=== PATIENT | female | born 1960 | race Caucasian/White ===

== ENCOUNTER 2020-02-16 09:52 | Inpatient (IN) | payer OTHER ==
[~2020-02-16] VITALS: Ht 182.9 cm; Wt 99.8 kg
[~2020-02-16 09:52] MED LIST: ACET325T9 PO; LEVO25TA55 PO
[2020-02-16] MEDS ORDERED: IV NORMAL SALINE 1,000ML 1,000 ML IV ONE (10:15)
[2020-02-16] MEDS ORDERED: MECLIZINE 12.5 MG TABLET. PO ONE (10:15)
[2020-02-16] MEDS ORDERED: ONDANSETRON PF 4 MG/2 ML VIAL. IVP ONE (10:15)
[2020-02-16] MEDS ORDERED: diphenhydrAMINE 50 MG/ML VIAL IVP ONE (10:15)
[2020-02-16 10:20] LABS: BASO % 0 % (0-3); EOS % 1 % (0-3); HEMATOCRIT 44.1 % (36.0-47.0); HEMOGLOBIN 14.8 g/dL (12.0-15.5); LYMPH % 11 % (24-48); MEAN CORPUSCULAR HEMOGLOBIN 32 pg (25-35); MEAN CORPUSCULAR HGB CONC 34 g/dL (31-37); MEAN CORPUSCULAR VOLUME 96 fL (79-100); MONO # 0.4 x10^3/uL (0.0-1.1); MONO % 4 % (0-9); NEUT # 7.5 x10^3uL (1.8-7.7); NEUT % 84 % (31-73); PLATELET COUNT 177 x10^3/uL (140-400); RED BLOOD COUNT 4.58 x10^6/uL (3.50-5.40); RED CELL DISTRIBUTION WIDTH 13.6 % (11.5-14.5); WHITE BLOOD COUNT 8.9 x10^3/uL (4.0-11.0)
--- NOTE | 2020-02-16 10:23 | PHYS DOC ---
Past History Past Medical History: Anxiety, GERD, Hypothyroid Past Surgical History: Cholecystectomy, Hysterectomy, Knee Replacement, Other Additional Past Surgical Histo: NECK DISC SURGERY Alcohol Use: Rarely Additional Alcohol Information: RED WINE General Adult EDM: Chief Complaint: DIZZY/LIGHT HEADED HPI: HPI: 60-year-old female presents with dizziness. This started yesterday as a mild case when she was on a Zoom call. She did not think much of it. Then last night when she was sitting on the couch she became significantly more dizzy. She describes it as a room spinning sensation. It is made worse with movement of her head or changes in body position. She has had a few episodes of vomiting this morning. These were exacerbated by moving to the ambulance gurney. Patient has had chills but denies fever. She was feeling okay prior to these episodes. She has had mild vertigo in the past when she needed cervical fusion. She has never had an episode like this. Review of Systems: Review of Systems: Constitutional: Denies fever or chills Eyes: Denies change in visual acuity HENT: Denies nasal congestion or sore throat Respiratory: Denies cough or shortness of breath Cardiovascular: Denies chest pain or edema GI: Nausea, vomiting. Denies abdominal pain, bloody stools or diarrhea : Denies dysuria Musculoskeletal: Denies back pain or joint pain Integument: Denies rash Neurologic: Dizziness. Denies headache, focal weakness or sensory changes Endocrine: Denies polyuria or polydipsia Lymphatic: Denies swollen glands Psychiatric: Denies depression or anxiety Heart Score: Risk Factors: Risk Factors: DM, Current or recent (<one month) smoker, HTN, HLP, family history of CAD, obesity. Risk Scores: Score 0 - 3: 2.5% MACE over next 6 weeks - Discharge Home Score 4 - 6: 20.3% MACE over next 6 weeks - Admit for Clinical Observation Score 7 - 10: 72.7% MACE over next 6 weeks - Early Invasive Strategies Current Medications: Current Meds: Current Medications Medications (Trade) Dose Ordered Sig/Kevin Start Time Stop Time Status Last Admin Dose Admin Diphenhydramine HCl (Benadryl) 25 mg 1X ONCE 02/16/20 10:15 02/16/20 10:16 DC Meclizine HCl (Antivert) 25 mg 1X ONCE 02/16/20 10:15 02/16/20 10:16 DC Ondansetron HCl (Zofran) 4 mg 1X ONCE 02/16/20 10:15 02/16/20 10:16 DC Sodium Chloride 1,000 ml @ 1,000 mls/hr 1X ONCE 02/16/20 10:15 02/16/20 11:14 Allergies: Allergies: Allergies Coded Allergies Type Severity Reaction Last Updated Verified acetaminophen Allergy Unknown VOMITING 02/16/20 Yes aspirin Allergy Unknown 02/16/20 Yes ibuprofen Allergy Unknown 02/16/20 Yes oxycodone Allergy Unknown VOMITING 02/16/20 Yes Physical Exam: PE: Constitutional: Well developed, well nourished, no acute distress, non-toxic appearance. [] HENT: Normocephalic, atraumatic, bilateral external ears normal, oropharynx moist, no oral exudates, nose normal. [] Eyes: PERRLA, horizontal nystagmus bilaterally [] Neck: Normal range of motion, no tenderness, supple, no stridor. [] Cardiovascular: Heart rate regular rhythm, no murmur [] Lungs & Thorax: Bilateral breath sounds clear to auscultation [] Abdomen: Bowel sounds normal, soft, no tenderness, no masses, no pulsatile masses. [] Skin: Warm, dry, no erythema, no rash. [] Back: No tenderness, no CVA tenderness. [] Extremities: No tenderness, no cyanosis, no clubbing, ROM intact, no edema. [] Neurologic: Alert and oriented X 3, normal motor function, normal sensory function, no focal deficits noted. [] Psychologic: Affect normal, judgement normal, mood normal. [] Current Patient Data: Vital Signs: Vital Signs Date Time Temp Pulse Resp B/P (MAP) Pulse Ox O2 Delivery O2 Flow Rate FiO2 02/16/20 09:53 97.7 58 18 155/98 (117) 97 Room Air EKG: EKG: Sinus bradycardia, rate 54, normal axis, no ST elevations or depressions. [] Radiology/Procedures: Radiology/Procedures: [] Impressions: PQRS Compliance Statement: One or more of the following individualized dose reduction techniques were utilized for this examination: 1. Automated exposure control 2. Adjustment of the mA and/or kV according to patient size 3. Use of iterative reconstruction technique CT HEAD WITHOUT CONTRAST History: Reason: dizziness / Spl. Instructions: / History: Comparison: None. Procedure: Axial images are obtained of the head from the skull base through the vertex without IV contrast. Findings: The ventricles and sulci are normal for the patient's age. No mass-effect, midline shift, hemorrhage, extra-axial fluid collection, or obvious acute infarction is identified. Basilar cisterns are patent. Bone windows demonstrate no acute calvarial abnormality. The visualized paranasal sinuses are clear. Mastoid air cells are well aerated. IMPRESSION: No acute intracranial abnormality. Electronically signed by: Yusuf Hernandez MD (02/16/2020 11:30 AM) [id number] DICTATED AND SIGNED BY: YUSUF HERNANDEZ MD DATE: 02/16/20 1130 CC: SHADIA ESCOBAR DO; MARK LUJAN Jr. PAC ~ Course & Med Decision Making: Course & Med Decision Making Pertinent Labs and Imaging studies reviewed. (See chart for details) The patient's labs are unremarkable. Her head CT is negative for acute findings. I have given her Zofran, meclizine, Benadryl for her dizziness. She is also given a liter of normal saline. She is not feeling any better. When she goes to sit up and move around her heart rate decreases into the mid 40s. She does not have a history of bradycardia. Her EKG had a rate of 54 at rest, normal sinus. The patient does not feel well enough to go home. Her bradycardia is also concerning. I will admit the patient to the hospital. I spoke with Dr. Briggs and he has accepted the patient for admission. [] Sami Disclaimer: Sami Disclaimer: This electronic medical record was generated, in whole or in part, using a voice recognition dictation system. Departure Departure: Impression: Primary Impression: Bradycardia Additional Impression: Dizziness Disposition: ADMITTED INPATIENT Admitting Physician: Victor Manuel Briggs Condition: STABLE Referrals: MARK LUJAN Jr. PAC (PCP) Justification of Admission: Justification of Admission: Justification of Admission Dx: Comment: Comments: dizziness, bradycardia SAHDIA ESCOBAR DO Feb 16, 2020 10:23
[2020-02-16 10:25] LABS: CALCIUM 8.9 mg/dL (8.5-10.1); GFR 56.2; POTASSIUM 3.7 mmol/L (3.5-5.1)
[2020-02-16 10:31] LABS: ALBUMIN/GLOBULIN RATIO 1.1 (1.0-1.7); TOTAL BILIRUBIN 0.4 mg/dL (0.2-1.0); TOTAL PROTEIN 7.5 g/dL (6.4-8.2)
--- NOTE | 2020-02-16 11:33 | RAD ---
RS Compliance Statement: One or more of the following individualized dose reduction techniques were utilized for this examination: 1. Automated exposure control 2. Adjustment of the mA and/or kV according to patient size 3. Use of iterative reconstruction technique CT HEAD WITHOUT CONTRAST History: Reason: dizziness / Spl. Instructions: / History: Comparison: None. Procedure: Axial images are obtained of the head from the skull base through the vertex without IV contrast. Findings: The ventricles and sulci are normal for the patient's age. No mass-effect, midline shift, hemorrhage, extra-axial fluid collection, or obvious acute infarction is identified. Basilar cisterns are patent. Bone windows demonstrate no acute calvarial abnormality. The visualized paranasal sinuses are clear. Mastoid air cells are well aerated. IMPRESSION: No acute intracranial abnormality. Electronically signed by: Yusuf Hernandez MD (02/16/2020 11:30 AM) [id number]
--- NOTE | 2020-02-16 11:45 | EKG ---
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
[2020-02-16] MEDS ORDERED: ONDANSETRON PF 4 MG/2 ML VIAL. IVP PRN ×2 (13:15→15:15)
--- NOTE | 2020-02-16 14:50 | NUR ---
PT 60 Y/O FEMALE BROUGHT TO ICU6 BY EMS AND ED STAFF IN [facility], SETTLED INTO BED AND ORIENTED TO ROOM AND VERBALIZED UNDERSTANDING TO TRAINING, VERIFIED HOME MEDS, ALL QUESTIONS ASKED AND ANSWERED. PT COMPLAINS OF DIZZINESS THAT STARTED LAST NIGHT AND INTO THIS MORNING, STATES HAVING VOMITING EPISODES X3, DIZZINESS NOT RESOLVED IN ER. WILL CONTINUE TO MONITOR. VSS AT THIS TIME
[2020-02-16 14:54] VITALS: BP 124/72
[2020-02-16] MEDS ORDERED: IV NORMAL SALINE 1,000ML 1,000 ML IV SCH (15:07)
[2020-02-16] MEDS ORDERED: diphenhydrAMINE 50 MG/ML VIAL IVP PRN (15:15)
[2020-02-16] MEDS ORDERED: METOCLOPRAMIDE HCL 10 MG/2 ML VIAL. IVP PRN (15:15)
[2020-02-16] MEDS ORDERED: OMEP20CA16 PO (15:29)
[2020-02-16] MEDS ORDERED: LEVO50TA PO (15:33)
[2020-02-16] MEDS ORDERED: GABA-585 PO (15:33)
[2020-02-16] MEDS ORDERED: CLON0.5T4 PO (15:33)
[2020-02-16] MEDS ORDERED: ZOLP5TAB PO (15:33)
--- NOTE | 2020-02-16 15:38 | HP ---
ADMIT DATE: 02/16/2020 HISTORY OF PRESENT ILLNESS: The patient is a 60-year-old female patient who presented to the Emergency Room with a complaint of dizziness. This started yesterday, is mild case when she was on a Zoom call. She did not think much of it. Then last night when she was sitting on the couch, she became significantly more dizzy, described as room spinning sensation. It is made worse with movement of her head or change in body position. She had a few episodes of vomiting this morning, she went to the bathroom. Her symptoms are exacerbated by moving to the ambulance gurney. She had some chills, but denied any fever. She was feeling okay prior to this episode. She stated that she had similar episodes when she had her cervical spine fusions, but she never had any episode like this before. She was extensively investigated in the Emergency Room and according to the ER physician, she has nystagmus. However, all her lab works were unremarkable. CT scan of the head without contrast showed that the ventricles and sulci are normal for the patient's age. There was no mass effect, midline shift, hemorrhage, extraaxial fluid collection or obvious acute infarction identified. Basilar cisterns are patent. Bone windows demonstrated no acute calvarial abnormality. The visualized paranasal sinuses are clear. Mastoid air cells are well aerated. Therefore, the patient was admitted for further evaluation and to consult Dr. Palmer. PAST MEDICAL HISTORY: Significant for hypothyroidism, hiatal hernia, gastroesophageal reflux disease, osteoarthritis, degenerative disk disease. PAST SURGICAL HISTORY: Significant for neck surgery x 3. She has bilateral total knee arthroplasty, total abdominal hysterectomy, cholecystectomy, left breast benign cyst removal, left Achilles tendon cyst removal, surgery on her left foot. She did have a stress test in 2018 that was apparently normal. She has had an EGD and colonoscopy in 2017. ALLERGIES: APPARENTLY SHE DOES NOT HAVE A TRUE ALLERGY BUT ASPIRIN, MOTRIN IRRITATE HER STOMACH AND PERCOCET MAKES HER VERY NAUSEOUS AND VOMIT. MEDICATIONS: She is on following medications: She is on omeprazole 20 mg once a day, Synthroid 50 mcg once a day, Ambien 5 mg at bedtime, clonazepam 1 mg at bedtime. She is on gabapentin 300 mg probably 3 times a day after she developed recurrence of tingling and numbness after her surgery on her neck that was done about a year ago. FAMILY HISTORY: She is adopted. She does not know her biological parents. SOCIAL HISTORY: She is , lives with her cat. She never smoked. Drinks red wine usually 1-2 glasses a day, does not use any drugs. 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 REVIEW OF SYSTEMS: The patient denies any blurring of vision, cataract, glaucoma or macular degeneration. Denied any earache, tinnitus or sensorineural deafness. Denied any nosebleeds, stuffy nose or postnasal drip. Denied any sore throat, sore tongue, toothache, hoarseness of voice or difficulty swallowing. Did have nausea, vomiting only yesterday and this morning. Denied any diarrhea or constipation. Denied any hematemesis, melena, hematochezia. Denied any dysuria, frequency or hematuria. Denied any chest pain, shortness of breath, orthopnea or paroxysmal nocturnal dyspnea. Denied any cough, phlegm or hemoptysis. Did complain obviously of dizziness and vertigo. PHYSICAL EXAMINATION: GENERAL: On arrival to the Emergency Room, the patient was well-developed, well nourished, in no acute distress. There is no pallor, jaundice, cyanosis or thyromegaly. No jugular venous distention. No lower limb edema. VITAL SIGNS: Her heart rate was 58, blood pressure 155/98, temperature 97.7, respiratory rate was 18 and oxygen saturation was 97% on room air. HEAD, EYES, EARS, NOSE AND THROAT: Showed normocephalic, atraumatic. NECK: Supple. HEART: Showed normal first and second heart sounds. No gallop, rub or murmur. CHEST: Clear to auscultation. No crepitation or rhonchi. ABDOMEN: Distended, soft, nontender. NEUROLOGIC: She is awake, alert, responding appropriately. She is unable to open her eyes as every time she opens her eyes she feels things spinning around; however, she has no obvious lateralizing sign. She was able to move her extremities without difficulty. LABORATORY DATA: Showed a white cell count of 8900, hemoglobin 14.8, hematocrit 44, MCV 96, and platelet count of 177,000. Her serum sodium was 141, potassium 3.7, chloride 105, bicarbonate 26, anion gap of 10, BUN 13, creatinine 1, estimated GFR was 56 mL per minute. Her glucose was 58, calcium was 8.9. Total bilirubin 0.4. AST, ALT, alkaline phosphatase slightly elevated. Total protein 7.5, albumin 4. CT scan of the head without contrast showed that her ventricles and sulci are normal for the patient's age, no mass effect, midline shift, hemorrhage, extraaxial fluid collection or obvious acute infarction identified. Basilar cisterns are patent. Bone windows demonstrate no acute calvarial abnormality. Visualized paranasal sinuses are clear. Mastoid air cells are well aerated. ASSESSMENT AND PLAN: The patient was admitted with acute probably vestibular neuronitis. She apparently was noted to have also episodes of bradycardia while in the Emergency Room. PLAN: My plan is to continue with IV fluid. We will continue her medication, start her on meclizine as well as continue with IV fluid and perhaps add diazepam and we will consult the neurologist. REID GARCIA MD DR: DEBORAH/forrest JOB#: [id number] / [id number]
[2020-02-16] MEDS: ACETAMINOPHEN 325 MG TABLET PO PRN ×2 (15:46→21:29)
[2020-02-16] MEDS: IV NORMAL SALINE 1,000ML 1,000 ML IV SCH (15:46)
[2020-02-16 18:55] LABS: BILIRUBIN,URINE NEG (NEG); CLARITY,URINE HAZY; COLOR,URINE YELLOW; GLUCOSE,URINE NEG (NEG); NITRITE,URINE NEG (NEG); RBC,URINE 0 /HPF (0-2); UROBILINOGEN,URINE 0.2 mg/dL (0.2 mg/dL)
[2020-02-16 18:56] LABS: BACTERIA,URINE FEW /HPF (0-FEW); SQUAMOUS EPITHELIAL CELL,UR FEW /LPF
[2020-02-16 20:30] VITALS: BP 137/74
[2020-02-16] MEDS: MECLIZINE 12.5 MG TABLET. PO PRN (21:29)
[2020-02-16] MEDS: clonazePAM 0.5 MG TABLET PO PRN (21:29)
[2020-02-16] MEDS: GABAPENTIN 100 MG CAPSULE. PO SCH (21:29)
[2020-02-16] MEDS: ZOLPIDEM 5 MG TABLET. PO PRN (21:29)
[2020-02-17] VITALS (8 sets, daily range): BP systolic 118–145; BP diastolic 78–94
[2020-02-17] MEDS: IV NORMAL SALINE 1,000ML 1,000 ML IV SCH ×3 (00:53→23:53)
[2020-02-17] MEDS: LEVOTHYROXINE 50 MCG TABLET PO SCH (06:03)
[2020-02-17 06:28] LABS: HEMATOCRIT 39.3 % (36.0-47.0); HEMOGLOBIN 13.2 g/dL (12.0-15.5); RED BLOOD COUNT 4.11 x10^6/uL (3.50-5.40); RED CELL DISTRIBUTION WIDTH 13.5 % (11.5-14.5); WHITE BLOOD COUNT 5.3 x10^3/uL (4.0-11.0)
[2020-02-17 06:46] LABS: ALBUMIN 3.3 g/dL (3.4-5.0); ALBUMIN/GLOBULIN RATIO 1.1 (1.0-1.7); CALCIUM 8.5 mg/dL (8.5-10.1); CREATININE 0.8 mg/dL (0.6-1.0); GFR 72.7; POTASSIUM 3.9 mmol/L (3.5-5.1); TOTAL BILIRUBIN 0.4 mg/dL (0.2-1.0); TOTAL PROTEIN 6.3 g/dL (6.4-8.2)
[2020-02-17] MEDS: GABAPENTIN 100 MG CAPSULE. PO SCH ×3 (09:09→20:32)
[2020-02-17] MEDS: MECLIZINE 12.5 MG TABLET. PO PRN ×3 (09:13→23:47)
[2020-02-17] MEDS: ACETAMINOPHEN 325 MG TABLET PO PRN ×3 (09:13→20:32)
--- NOTE | 2020-02-17 09:41 | NUR ---
attempted to page Dr. Palmer x 2 with no response.
--- NOTE | 2020-02-17 17:12 | CONS ---
DATE OF CONSULTATION: NEUROLOGY CONSULTATION REFERRING PHYSICIAN: Dr. Briggs. REASON FOR CONSULTATION: Severe dizziness. HISTORY OF PRESENT ILLNESS: This is a 60-year-old right-handed female who was admitted through Emergency Room after she presented with 1-day history of progressive dizziness described as vertigo and spinning, aggravated by moving the eyes to any directions or changing her body positions. The symptoms have worsened yesterday on the day of admission. She also complains of neck pain radiating into the upper extremities, more prominent on the right side and associated with numbness and paresthesia. Other associated symptoms including nausea and she did vomit twice on the day of admission. Initial nonenhanced head CT scan revealed no evidence of acute intracranial process or any other abnormalities. The patient has been on IV fluid, meclizine and Zofran for nausea with some improvement of her symptoms; however, she has not had any vomiting since yesterday. Currently, she denies headaches, visual disturbances, chest pain, shortness of breath or palpitation, dysarthria or dysphagia. She denies fever or cough. PAST MEDICAL HISTORY: Significant for anxiety and depression. The patient has been on Zoloft for several years, but she was weaned off by her psychiatrist 3 months ago, but she thinks she needs to be placed on antidepressant again. History of osteoarthritis, GERD, hypothyroidism, and degenerative disk disease mainly in the cervical spine. PAST SURGICAL HISTORY: Significant for cervical spine fusion x 3 in 1990, 2014 and in October 2018 when the plate was shifted. The surgery was at the level of C3-C4 and C4-C5. History of cholecystectomy, total abdominal hysterectomy, bilateral total knee replacement, left Achilles tendon cyst removal and removal of a benign cyst of the left breast. The patient underwent EGD and colonoscopy in 2017 and she had stress test in 2018, which was reported normal. SOCIAL HISTORY: The patient is single. She denies smoking, but she drinks 1-2 glasses of wine daily. She is a retired [employer] personnel and currently she is a financial administrative assistant. FAMILY HISTORY: The patient is adopted. ALLERGIES: PERCOCET and possible ASPIRIN and IBUPROFEN. REVIEW OF SYSTEMS: A 12-point review of system was performed as mentioned above in history of present illness. PHYSICAL EXAMINATION: GENERAL: Obese female, not in acute distress. She weighs 102.9 kilos. VITAL SIGNS: Blood pressure 136/84, respiratory rate 16, pulse is 49, temperature is 98.1, oxygen saturation is 97, the pulse this morning was between 50 and 60. No orthostatic changes. NECK: Supple. Negative for carotid bruit, lymphadenopathy or thyromegaly. LUNGS: Clear to A and P. CARDIOVASCULAR: Regular rate and rhythm, normal S1, S2. No murmur. ABDOMEN: Soft. Bowel sounds positive. EXTREMITIES: Negative for cyanosis, clubbing or edema. NEUROLOGICAL: MENTAL STATUS: The patient is alert and oriented x 3. Speech is fluent. There is no language dysfunction. Memory, judgment, and abstracting thinking are normal. The patient denies hallucination or delusion. CRANIAL NERVES: The pupils are equal and reactive to light and accommodation. The extraocular movements are intact. There is 2-beat nystagmus on horizontal gaze. There is no facial motor or sensory deficit. Hearing is intact bilaterally. The palate is elevated symmetrically. Sternocleidomastoid muscles are powerful bilaterally. The patient shrugs her shoulders symmetrically, protrudes her tongue in the midline without fasciculation or atrophy. MOTOR EXAMINATION: No focal muscle bulk was seen. The tone is normal. The strength is 4/5 throughout. SENSORY EXAMINATION: Revealed diminished pinprick and light touch senses in the bilateral upper extremities, more evident on the right side. Deep tendon reflexes were symmetric and active without pathologic responses. GAIT: Not tested as the patient has severe spinning. LABORATORY DATA: CBC revealed white blood cells of 5.3 thousand, hemoglobin 13.2, hematocrit 39.3, platelet count 164,000. Chemistry revealed sodium of 142, potassium 3.9, chloride 108, CO2 of 28, BUN 11, creatinine 0.8, glucose 110, calcium 8.5. Urinalysis, no evidence of urinary tract infections. DIAGNOSTIC DATA: Initial nonenhanced head CT scan as mentioned above in history of present illness, otherwise unremarkable. IMPRESSION: 1. Acute vertigo, likely due to acute vestibulitis. 2. Numbness and paresthesia of the upper extremities with positive Tinel's sign, more prominent on the right side, rule out entrapment neuropathy versus cervical radiculopathy with a longstanding history of underlying degenerative disk disease. 3. Multiple medical problems include hypothyroidism, gastroesophageal reflux disease, osteoarthritis. 4. Anxiety and depressions. RECOMMENDATIONS: 1. We will continue with current management initiated by Dr. Briggs. 2. I will increase meclizine to 25 mg every 8 hours p.r.n. 3. I will put the patient back on Zoloft to start at 50 mg daily. 4. We will arrange for EMG/NCS of the upper extremities to rule out entrapment neuropathy versus cervical radiculopathy to be done on an outpatient basis. 5. Increase physical activity slowly and carefully as tolerated. M Len BIANCHI MD DR: GEETA/forrest JOB#: [id number] / [id number]
--- NOTE | 2020-02-17 19:04 | PN ---
DATE: 02/17/2020 SUBJECTIVE: The patient is resting, slightly propped up in bed and definitely much better than yesterday. She is able to open her eyes and managed to get out of the bed, stand and get to the bedside commode. Continues to complain of things spinning around, although she managed to eat her lunch and kept it without any nausea or vomiting. She was seen by Dr. Palmer and increased her meclizine to 12.5 mg every 4 hours and added Zoloft. PHYSICAL EXAMINATION: GENERAL: When I examined her, she looked well and was clearly in no apparent distress. No pallor, jaundice, cyanosis or thyromegaly. No jugular venous distention. No limb edema. VITAL SIGNS: Her heart rate was 49, blood pressure was 136/84, temperature was 98.1, respiratory rate was 15 and oxygen saturation was 97% on room air. HEAD, EYES, EARS, NOSE AND THROAT: Normocephalic, atraumatic. NECK: Supple. HEART: Showed normal first and second heart sounds. No gallop, rub or murmur. CHEST: Clear to auscultation. No crepitation or rhonchi. ABDOMEN: Distended, soft, nontender. NEUROLOGIC: She is grossly intact. Her intake and output are incompletely recorded. LABORATORY DATA: Her lab work this morning showed her white cell count was 5,300, hemoglobin 13, hematocrit 39, MCV 88 and platelet count of 164,000. Her chemistry showed serum sodium of 142, potassium 3.9, chloride 108, bicarbonate 28, anion gap of 6, BUN 11, creatinine 0.8, estimated GFR was 72 mL per minute. Her glucose 110, calcium was 8.5. Total bilirubin, AST, ALT, alkaline phosphatase were normal. Total protein 6.3, albumin 3.3. Urinalysis essentially unremarkable. ASSESSMENT: Acute vestibular neuronitis, improving, sinus bradycardia. Other medical problems include: 1. Hypothyroidism. 2. Hiatus hernia. 3. Gastroesophageal reflux disease. 4. Osteoarthritis and degenerative disk disease. PLAN: To continue with IV fluid, continue with meclizine. Continue with Zoloft. Continue with all other medications. We have already ordered physical and occupational therapy. REID GARCIA MD DR: DEBORAH/forrest JOB#: [id number] / [id number]
[2020-02-17] MEDS: ZOLPIDEM 5 MG TABLET. PO PRN (21:05)
[2020-02-17] MEDS: clonazePAM 0.5 MG TABLET PO PRN (21:05)
[2020-02-18] MEDS: LEVOTHYROXINE 50 MCG TABLET PO SCH (05:29)
[2020-02-18 05:50] VITALS: BP 148/97
[2020-02-18 07:03] LABS: CALCIUM 8.3 mg/dL (8.5-10.1); CREATININE 0.8 mg/dL (0.6-1.0); GFR 72.7; POTASSIUM 3.7 mmol/L (3.5-5.1)
[2020-02-18] MEDS: MECLIZINE 12.5 MG TABLET. PO PRN ×2 (08:17→18:41)
[2020-02-18] MEDS: GABAPENTIN 100 MG CAPSULE. PO SCH ×3 (08:17→20:31)
[2020-02-18] MEDS: ACETAMINOPHEN 325 MG TABLET PO PRN ×3 (08:17→21:31)
[2020-02-18] MEDS: SERTRALINE 50 MG TABLET. PO SCH (08:18)
[2020-02-18 11:06] VITALS: BP 149/96
[2020-02-18] MEDS: IV NORMAL SALINE 1,000ML 1,000 ML IV SCH (12:12)
--- NOTE | 2020-02-18 12:23 | PN ---
DATE: SUBJECTIVE: The patient is sitting in her chair comfortably. She has been able to walk to the bathroom and is now opening her eyes. However, she continued to complain of things spinning around, although she has eaten some of her breakfast this morning and had no nausea, no vomiting. Her meclizine was increased to 25 mg every 4 hours and was started on Zoloft 50 mg and she is generally slowly getting better, although not yet ready to be discharged. PHYSICAL EXAMINATION: GENERAL: When I examined her, she looked well and was clearly in no apparent respiratory distress. No pallor, jaundice, cyanosis or thyromegaly. No jugular venous distention. No limb edema. VITAL SIGNS: Her heart rate was 54, blood pressure was 149/96, temperature was 98.5, respiratory rate was 16, and oxygen saturation was 97%. HEAD, EYES, EARS, NOSE AND THROAT: Showed normocephalic, atraumatic. NECK: Supple. HEART: Showed normal first and second heart sounds. No gallop, rub or murmur. CHEST: Clear to auscultation. No crepitation or rhonchi. ABDOMEN: Distended, soft, nontender. NEUROLOGIC: She is awake, alert. She does have nystagmus. However, all cranial nerves intact. She moves extremities without difficulty. She does complain of tingling and numbness mostly in the right upper extremity, clinically more consistent with carpal tunnel syndrome. Her intake over the last 24 hours was 1420, output was 350. LABORATORY DATA: Her lab work as of yesterday showed a white cell count 5300, hemoglobin 13, hematocrit 39, MCV 96, and platelet count of 164,000. Serum sodium this morning was 142, potassium 3.7, chloride 108, bicarbonate 27, anion gap of 7, BUN 10, creatinine 0.8, estimated GFR was 73 mL per minute. Her glucose was 104, calcium was 8.3. ASSESSMENT: 1. Acute vestibular neuronitis, improving. 2. Sinus bradycardia with a lowest down to 36 beats per minute and it showed this is vaguely mediated. 3. Hypothyroidism. 4. Hiatus hernia. 5. Gastroesophageal reflux disease. 6. Osteoarthritis. 7. Degenerative disk disease, status post multiple surgical interventions on her cervical spine. PLAN: My plan is to continue with IV fluid, continue with meclizine. Continue with Zoloft. Continue with all her other medication. Continue with physical and occupational therapy, also consult the installation and repair technician for this marked bradycardia. REID GARCIA MD DR: DEBORAH/forrest JOB#: [id number] / [id number]
--- NOTE | 2020-02-18 13:57 | PN ---
DATE: SUBJECTIVE: The patient continues to have global headaches. She denies nausea, vomiting, chest pain, shortness of breath or palpitation. She continues to have vertigo while changing her body positions quickly or turning her head to any directions quickly. OBJECTIVE: GENERAL: Obese female, not in acute distress. She weighs 100.6 kilos. VITAL SIGNS: Blood pressure 149/96, respiratory rate 16, pulse is 54 and regular, oxygen saturation is 97%, and temperature is 98.5. HEENT: Normocephalic, atraumatic, otherwise unremarkable. NECK: Supple. Negative for carotid bruit, lymphadenopathy or thyromegaly. LUNGS: Clear to A and P. CARDIOVASCULAR: Regular rate and rhythm, normal S1, S2. ABDOMEN: Soft. Bowel sounds positive. EXTREMITIES: Negative for cyanosis, clubbing or edema. NEUROLOGICAL EXAMINATION: Mental status: Normal mental status. Cranial nerves: 1-beat nystagmus on horizontal gaze. Otherwise, unremarkable. No focal motor deficit. The strength is 4/5 throughout. Sensory examination revealed diminished pinprick and light touch senses in the bilateral upper extremities, more prominent on the right side. Deep tendon reflexes were symmetric and active without pathology responses. Gait not tested; however, the patient has been able to transfer herself from the bed to the bathroom using a walker and assistance. IMPRESSION: Acute vestibulopathy versus acute versus benign positional vertigo, numbness and paresthesia of the upper extremity with chronic neck pain, hypothyroidism, gastroesophageal reflux disease, osteoarthritis, anxiety and depression. RECOMMENDATIONS: 1. Continue with current management initiated by Dr. Briggs. 2. Continue with previous neurological recommendations. M Len BIANCHI MD DR: GEETA/forrest JOB#: [id number] / [id number]
[2020-02-18 15:05] VITALS: BP 154/88
--- NOTE | 2020-02-18 15:05 | NUR ---
CONSULT PLACED WITH CARDIOLOGY.
[2020-02-18 19:37] VITALS: BP 163/88
[2020-02-18] MEDS: ZOLPIDEM 5 MG TABLET. PO PRN (21:31)
[2020-02-18] MEDS: clonazePAM 0.5 MG TABLET PO PRN (21:31)
[2020-02-18 22:22] VITALS: BP 160/94
[2020-02-19] MEDS: IV NORMAL SALINE 1,000ML 1,000 ML IV SCH ×2 (01:07→03:15)
[2020-02-19] MEDS: MECLIZINE 12.5 MG TABLET. PO PRN ×3 (03:24→20:01)
[2020-02-19 06:09] VITALS: BP 174/91
[2020-02-19] MEDS: ACETAMINOPHEN 325 MG TABLET PO PRN ×3 (06:23→20:04)
[2020-02-19] MEDS: LEVOTHYROXINE 50 MCG TABLET PO SCH (06:23)
[2020-02-19] MEDS: SERTRALINE 50 MG TABLET. PO SCH (07:42)
[2020-02-19] MEDS: GABAPENTIN 100 MG CAPSULE. PO SCH ×3 (07:42→20:01)
--- NOTE | 2020-02-19 08:23 | PDOC2 ---
CARDIAC CONSULT DATE OF CONSULT Date Of Consult DATE: 02/19/20 TIME: 08:17 REASON FOR CONSULT Reason for Consult Bradycardia REFERRING PHYSICIAN Referring Physician Dr. Briggs SOURCE Source: Chart review, Patient HPI History of Present Illness This is a 60 yo female who presented secondary to persistent dizziness. Patient report dizziness began evening. On Wednesday morning, dizziness was much worse and was associated with nausea/vomiting. Reports room was spinning. Significantly worse with slight movement. No chest pain, palpitations, diaphoresis, or SOA. Dizziness persisted so she decided to come to the ED for further evaluation and treatment. Noted to be bradycardic on tele monitor, which prompted this consult. Lowest HR 36 during the night. Mean 50. No pauses. [facility]. PAST MEDICAL HISTORY GI: GERD Psych: Anxiety Musculoskeletal: Osteoarthritis Endocrine: Hypothyroidism PAST SURGICAL HISTORY Past Surgical History: Cholecystectomy, Hysterectomy, Other (neck surgery ) FAMILY HISTORY Family History: Hypertension SOCIAL HISTORY Smoke: No ALCOHOL: none Drugs: None Lives: Alone CURRENT MEDICATIONS Current Medications Current Medications Sodium Chloride 1,000 ml @ 1,000 mls/hr 1X ONCE IV Last administered on 01/18 08/07at 10:20; Start 02/16/20 at 10:15; Stop 02/16/20 at 11:14; Status DC Ondansetron HCl (Zofran) 4 mg 1X ONCE IVP Last administered on 02/16/20at 10:19; Start 02/16/20 at 10:15; Stop 02/16/20 at 10:16; Status DC Meclizine HCl (Antivert) 25 mg 1X ONCE PO Last administered on 02/16/20at 10:44; Start 02/16/20 at 10:15; Stop 02/16/20 at 10:16; Status DC Diphenhydramine HCl (Benadryl) 25 mg 1X ONCE IVP Last administered on 02/16/20at 10:21; Start 02/16/20 at 10:15; Stop 02/16/20 at 10:16; Status DC Ondansetron HCl (Zofran) 4 mg PRN Q4HRS PRN IVP NAUSEA/VOMITING; Start 02/16/20 at 13:15; Stop 02/16/20 at 15:34; Status DC Sodium Chloride 1,000 ml @ 100 mls/hr Q10H IV ; Start 02/16/20 at 15:07; Stop 02/16/20 at 15:19; Status DC Acetaminophen (Tylenol) 650 mg PRN Q6HRS PRN PO Headaches, Temp > 101.5F Last administered on 02/19/20at 06:23; Start 02/16/20 at 15:15 Metoclopramide HCl (Reglan Vial) 10 mg PRN Q6HRS PRN IVP 2ND CHOICE NAUSEA/VOMITING; Start 02/16/20 at 15:15 Ondansetron HCl (Zofran) 4 mg PRN Q8HRS PRN IVP 1ST CHOICE NAUSEA/VOMITING; Start 02/16/20 at 15:15 Diphenhydramine HCl (Benadryl) 25 mg PRN Q6HRS PRN IVP SEE COMMENTS; Start 02/16/20 at 15:15 Sodium Chloride 1,000 ml @ 100 mls/hr Q10H IV Last administered on 02/19/20at 01:07; Start 02/16/20 at 15:15 Meclizine HCl (Antivert) 12.5 mg PRN Q6HRS PRN PO DIZZINESS Last administered on 02/17/20at 09:13; Start 02/16/20 at 15:30; Stop 02/17/20 at 14:06; Status DC Clonazepam (KlonoPIN) 1 mg PRN QHS PRN PO ANXIETY / AGITATION Last administered on 02/18/20at 21:31; Start 02/16/20 at 21:30 Gabapentin (Neurontin) 100 mg TID PO Last administered on 02/19/20at 07:42; Start 02/16/20 at 21:30 Levothyroxine Sodium (Synthroid) 50 mcg DAILY06 PO Last administered on 02/19/20 06:23; Start 02/17/20 at 06:00 Zolpidem Tartrate (Ambien) 5 mg PRN QHS PRN PO INSOMNIA Last administered on 02/18/20at 21:31; Start 02/16/20 at 21:30 Sertraline HCl (Zoloft) 50 mg DAILY PO Last administered on 02/19/20at 07:42; Start 02/18/20 at 09:00 Meclizine HCl (Antivert) 25 mg PRN Q8HRS PRN PO DIZZINESS Last administered on 02/19/20at 03:24; Start 02/17/20 at 14:15 Active Scripts Active Reported Clonazepam 0.5 Mg Tablet 2 Tab PO PRN QHS Gabapentin (Gabapentin) 100 Mg Capsule 100 Mg PO TID Ambien (Zolpidem Tartrate) 5 Mg Tablet 5 Mg PO PRN QHS PRN Synthroid (Levothyroxine Sodium) 50 Mcg Tablet 1 Tab PO DAILY MDD 50 mcg Omeprazole 20 Mg Capsule.dr 1 Cap PO DAILY MDD 20mg Tylenol (Acetaminophen) 325 Mg Tablet 325 Mg PO Synthroid (Levothyroxine Sodium) 25 Mcg Tablet 25 Mcg PO DAILYAC ALLERGIES Allergies: Coded Allergies: oxycodone (Verified Allergy, Intermediate, vomiting, 02/16/20) with percocet aspirin (Verified Allergy, Unknown, 02/16/20) HAS HERNIA ibuprofen (Verified Allergy, Unknown, 02/16/20) HERNIA ROS Review of Systems 14 point ROS conducted with pertinent positives noted above in HPI PHYSICAL EXAM General: Alert, Oriented X3, Cooperative, No acute distress HEENT: Atraumatic, Mucous membr. moist/pink Lungs: Clear to auscultation Heart: Regular rate Abdomen: Soft, No tenderness Extremities: No edema, Normal pulses Skin: No rashes, No breakdown Neuro: Normal speech, Sensation intact Psych/Mental Status: Mental status NL, Mood NL MUSCULOSKELETAL: Osteoarthritic changes both hands VITALS Vital Signs Vital Signs Date Time Temp Pulse Resp B/P (MAP) Pulse Ox O2 Delivery O2 Flow Rate FiO2 02/19/20 06:09 98.5 51 18 174/91 (118) 97 Room Air 02/18/20 19:37 LABS LABS Laboratory Tests Test 02/18/20 06:35 Sodium Level 142 mmol/L (136-145) Potassium Level 3.7 mmol/L (3.5-5.1) Chloride Level 108 mmol/L (98-107) Carbon Dioxide Level 27 mmol/L (21-32) Anion Gap 7 (6-14) Blood Urea Nitrogen 10 mg/dL (7-20) Creatinine 0.8 mg/dL (0.6-1.0) Estimated GFR (Cockcroft-Gault) 72.7 Glucose Level 104 mg/dL (70-99) Calcium Level 8.3 mg/dL (8.5-10.1) ASSESSMENT/PLAN Assessment/Plan 1. Dizziness/vertigo; neuro following. suspecting vestibulopathy versus benign positional vertigo. improved. Doubt etiology to be bradycardia as slight positional changes exacerbate symptoms. 2. Sinus bradycardia with a lowest noted at 36. No pauses. Mean 50. 3. Hypertension; controlled 4. Hypothyroidism; levothyroxine 5. GERD 6. Chronic neck pain 7. Anxiety, depression Recommendations TSH level Avoid AV brittany blocking agents Noted chronotropic response with physical activity. (patient would like to do this later as she just had breakfast) Outpatient event monitor. She would [facility] Supportive care Follow neuro SYED Peralta APRN Feb 19, 2020 08:23
--- NOTE | 2020-02-19 09:29 | PN ---
DATE: 02/19/2020 SUBJECTIVE: The patient continues to have global headaches manageable by Tylenol every 6 hours p.r.n. She stated her dizzy spinning has been less every day. She denies nausea or vomiting. The patient has had bradycardia in mid 50s since admission, but at night her pulse went down to mid 30s while sleeping. This morning, her pulse ranging from 58-63, but sinus and regular. OBJECTIVE: VITAL SIGNS: Blood pressure 174/91, respiratory rate 18, pulse is 51, temperature 98.5, oxygen saturation 97% on room air. HEENT: Normocephalic, atraumatic, otherwise unremarkable. NECK: Supple. Negative for carotid bruit, lymphadenopathy or thyromegaly. LUNGS: Clear to A and P. CARDIOVASCULAR: Regular rate and rhythm, normal S1, S2. There is no S3, S4 or murmur. ABDOMEN: Soft. Bowel sounds positive. EXTREMITIES: Negative for cyanosis, clubbing or edema. NEUROLOGICAL EXAM: Normal mental status and intact cranial nerves. There is no nystagmus. There are no facial motor or sensory deficits. Deep tendon reflexes were symmetric and active without pathologic responses. Gait: The patient uses a walker for ambulation. IMPRESSION: 1. Acute vertigo, probably secondary to vestibulopathy versus benign positional vertigo -- improved. 2. Intermittent bradycardia, more marked during sleep, as her pulse drop to mid 30s. During the day, her mild bradycardia is asymptomatic. 3. Multiple medical problems include osteoarthritis, hypothyroidism, gastroesophageal reflux disease, numbness and paresthesia of the hands, more prominent on the right side. 4. Anxiety and depression. RECOMMENDATIONS: 1. Continue with current management initiated by Dr. Briggs. 2. PT/OT as tolerated. 3. Holter monitoring for bradycardia. M Len BIANCHI MD DR: GEETA/forrest JOB#: [id number] / [id number]
[2020-02-19 10:47] VITALS: BP 154/91
[2020-02-19 15:14] VITALS: BP 158/87
[2020-02-19 19:30] VITALS: BP 161/90
--- NOTE | 2020-02-19 20:11 | PN ---
DATE: 02/19/2020 SUBJECTIVE: The patient is resting, slightly propped up, eating her lunch comfortably, in no apparent distress. She continued to feel dizzy. She has no further episodes of nausea or vomiting. She has been able to ambulate, has walked today with physical therapy. She did have a shower yesterday and the plan is for her to go home with home health. PHYSICAL EXAMINATION: GENERAL: When I examined her this morning, she looked well and was clearly in no apparent respiratory distress. No pallor, jaundice, cyanosis or thyromegaly. No jugular venous distention. No limb edema. VITAL SIGNS: Her heart rate continued to be somewhat low at 49 beats per minute. Her blood pressure was 154/91, temperature 98.6, respiratory rate 20, and oxygen saturation was 95%. HEAD, EYES, EARS, NOSE AND THROAT: Showed normocephalic, atraumatic. NECK: Supple. HEART: Showed normal first and second heart sounds. No gallop or murmur. CHEST: Clear to auscultation. No crepitation or rhonchi. ABDOMEN: Distended, soft, nontender. No guarding or rigidity. No organomegaly. All hernial orifice intact. Bowel sounds normal. NEUROLOGIC: She was awake, alert. All her cranial nerves are intact. She moves extremities without difficulty. Her intake was 2116, no output was recorded. LABORATORY DATA: Her lab work this morning showed a serum sodium 142, potassium 3.6, chloride 108, bicarbonate 27, anion gap of 7, BUN 10, creatinine 0.8, estimated GFR was 73 mL per minute. Her glucose 104, calcium was 8.3. ASSESSMENT: 1. Acute vestibular neuronitis versus benign positional vertigo, improving. 2. Intermittent bradycardia, more marked during sleep as her pulse dropped to mid 30s. Her heart rate accelerated during daytime and she is asymptomatic. 3. Multiple medical problems including: A. Osteoarthritis. B. Hypothyroidism. C. Gastroesophageal reflux disease. D. Numbness and paresthesias of the hands, more prominent in the right. E. Anxiety and depression. The patient was seen by Cardiology team and apparently the Cardiology team recommended a loop monitor that will be [facility] or from the [facility] team at [facility]. REID GARCIA MD DR: DEBORAH/forrest JOB#: [id number] / [id number]
[2020-02-19] MEDS: ZOLPIDEM 5 MG TABLET. PO PRN (21:25)
[2020-02-19] MEDS: clonazePAM 0.5 MG TABLET PO PRN (21:25)
[2020-02-19 23:30] VITALS: BP 135/85
--- NOTE | 2020-02-20 04:17 | NUR ---
Shift Note: Pt a/o x4, VSS, no c/o pain or n/v at this time, pt ambulating to bathroom w/standby assist using walker and gait belt, pt anticipating discharge today and has arranged to have support at home.
[2020-02-20] MEDS: MECLIZINE 12.5 MG TABLET. PO PRN (05:11)
[2020-02-20] MEDS: LEVOTHYROXINE 50 MCG TABLET PO SCH (05:11)
[2020-02-20 05:49] VITALS: BP 130/78
[2020-02-20 06:17] LABS: HEMATOCRIT 37.1 % (36.0-47.0); HEMOGLOBIN 12.8 g/dL (12.0-15.5); RED BLOOD COUNT 3.92 x10^6/uL (3.50-5.40); RED CELL DISTRIBUTION WIDTH 13.5 % (11.5-14.5); WHITE BLOOD COUNT 5.4 x10^3/uL (4.0-11.0)
[2020-02-20 06:31] LABS: ALBUMIN 3.5 g/dL (3.4-5.0); ALBUMIN/GLOBULIN RATIO 1.1 (1.0-1.7); CREATININE 0.9 mg/dL (0.6-1.0); GFR 63.4; POTASSIUM 3.6 mmol/L (3.5-5.1); TOTAL BILIRUBIN 0.5 mg/dL (0.2-1.0); TOTAL PROTEIN 6.6 g/dL (6.4-8.2)
[2020-02-20 06:37] LABS: CALCIUM 8.6 mg/dL (8.5-10.1)
[2020-02-20] MEDS: MECLIZINE 12.5 MG TABLET. PO SCH ×2 (08:00→13:29)
--- NOTE | 2020-02-20 08:12 | PDOC ---
CARDIO Progress Notes Date & Time Date of Service DATE: 02/20/20 TIME: 08:10 Time of Evaluation 08:10 Subjective Notes Dizziness improved Vitals Vitals Vital Signs Date Time Temp Pulse Resp B/P (MAP) Pulse Ox O2 Delivery O2 Flow Rate FiO2 02/20/20 05:49 98.4 46 20 130/78 (95) 96 Room Air 02/18/20 19:37 Weight Weight [ ] Input and Output I.O. Intake and Output 02/20/20 07:00 Intake Total 1020 ml Balance 1020 ml Intake Oral 1020 ml # Voids 3 Laboratory Labs Laboratory Tests Test 02/20/20 05:50 White Blood Count 5.4 x10^3/uL (4.0-11.0) Red Blood Count 3.92 x10^6/uL (3.50-5.40) Hemoglobin 12.8 g/dL (12.0-15.5) Hematocrit 37.1 % (36.0-47.0) Mean Corpuscular Volume 95 fL (79-100) Mean Corpuscular Hemoglobin 33 pg (25-35) Mean Corpuscular Hemoglobin Concent 34 g/dL (31-37) Red Cell Distribution Width 13.5 % (11.5-14.5) Platelet Count 163 x10^3/uL (140-400) Sodium Level 141 mmol/L (136-145) Potassium Level 3.6 mmol/L (3.5-5.1) Chloride Level 106 mmol/L (98-107) Carbon Dioxide Level 26 mmol/L (21-32) Anion Gap 9 (6-14) Blood Urea Nitrogen 12 mg/dL (7-20) Creatinine 0.9 mg/dL (0.6-1.0) Estimated GFR (Cockcroft-Gault) 63.4 BUN/Creatinine Ratio 13 (6-20) Glucose Level 99 mg/dL (70-99) Calcium Level 8.6 mg/dL (8.5-10.1) Total Bilirubin 0.5 mg/dL (0.2-1.0) Aspartate Amino Transf (AST/SGOT) 29 U/L (15-37) Alanine Aminotransferase (ALT/SGPT) 67 U/L (14-59) Alkaline Phosphatase 75 U/L (46-116) Total Protein 6.6 g/dL (6.4-8.2) Albumin 3.5 g/dL (3.4-5.0) Albumin/Globulin Ratio 1.1 (1.0-1.7) Physical Exams HEENT: Neck Supple W Full Motion Chest: Symmetric Lungs: Clear to Auscultation Heart: S1S2, RRR (SR/SB) Abdomen: Soft N/T Extremities: No Edema Neurology: alert, oriented, follow commands Assessment Assessment 1. Dizziness/vertigo; neuro following. suspecting vestibulopathy versus benign positional vertigo. improved. Doubt etiology to be bradycardia as slight positional changes exacerbate symptoms. 2. Sinus bradycardia with a lowest noted at 36. No pauses. Mean 50. Appropriate chronotropic response with activity 3. Hypertension; controlled 4. Hypothyroidism; levothyroxine 5. GERD 6. Chronic neck pain 7. Anxiety, depression Recommendations Avoid AV brittany blocking agents Echo to assess LV systolic function Outpatient event monitor. Patient has decided to have this and follow up conducted with Dr. Calvert. Will need referral from [facility] primary care provider, which has been communicated with office Will arranged outpatient monitor and followup Supportive care Follow neuro SYED Peralta APRN Feb 20, 2020 08:12
[2020-02-20] MEDS: SERTRALINE 50 MG TABLET. PO SCH (08:38)
[2020-02-20] MEDS: GABAPENTIN 100 MG CAPSULE. PO SCH ×2 (08:38→13:29)
--- NOTE | 2020-02-20 08:44 | PN ---
DATE: 02/20/2020 SUBJECTIVE: The patient denies any new medical or neurological complaints. She continues to have mild spinning when she changes her body positions quickly. She denies nausea, vomiting, chest pain, shortness of breath or palpitation, dysarthria or dysphagia. She continues to have some numbness of the right upper extremity and neck pain. OBJECTIVE: GENERAL: Well-developed, well-nourished female, not in acute distress. She weighs 99.8 kilos. VITAL SIGNS: Blood pressure 130/78, respiratory rate 20, pulse is 46, temperature 98.4, and oxygen saturation 96% on room air. HEENT: Normocephalic, atraumatic, otherwise unremarkable. NECK: Supple. Negative for carotid bruit, lymphadenopathy or thyromegaly. LUNGS: Clear to A and P. CARDIOVASCULAR: Regular rate and rhythm, normal S1, S2. There is no S3, S4 or murmur. ABDOMEN: Soft. Bowel sounds positive. EXTREMITIES: Negative for cyanosis, clubbing or edema. NEUROLOGICAL EXAM: Normal mental status and intact cranial nerves. There is no nystagmus. No focal motor deficit. She has diminished pinprick and light touch senses over the right upper extremity. Deep tendon reflexes were symmetric and active without pathology responses. Gait and coordination were normal. The patient uses a walker for ambulation because of vertigo. IMPRESSION: 1. Acute vertigo described as spinning -- improved, probably due to acute vestibulopathy versus benign positional vertigo. 2. Multiple medical problems include chronic neck pain, numbness and paresthesia of the right upper extremity, rule out entrapment neuropathy versus cervical radiculopathy, hypothyroidism, gastroesophageal reflux disease, osteoarthritis and paroxysmal bradycardia during rest; however, this morning, pulse range between 68-75. RECOMMENDATIONS: 1. Continue with current management initiated by Dr. Briggs and Cardiology. 2. We will arrange for outpatient visit to evaluate numbness and paresthesia of the upper extremities to rule out cervical radiculopathy versus entrapment neuropathy. M Len BIANCHI MD DR: GEETA/forrest JOB#: [id number] / [id number]
[2020-02-20] MEDS: ACETAMINOPHEN 325 MG TABLET PO PRN (08:53)
[2020-02-20 11:29] VITALS: BP 148/84
--- NOTE | 2020-02-20 13:15 | CARD ---
MR#: [id number] Date of Study: 02/20/2020 Ordering Physician: SYED SIMPSON, Referring Physician: SYED SIMPSON, Tech: Carmelina Garcia TOM APPROVED REPORT EXAM: Two-dimensional and M-mode echocardiogram with Doppler and color Doppler. Other Information Quality : Fair Rhythm : Bradycardia INDICATION Dizziness and Vertigo 2D DIMENSIONS RVDd2.9 (2.9-3.5cm)Left Atrium(2D)3.8 (1.6-4.0cm) IVSd1.1 (0.7-1.1cm)Aortic Root(2D)2.6 (2.0-3.7cm) LVDd4.5 (3.9-5.9cm)LVOT Diameter1.9 (1.8-2.4cm) PWd1.1 (0.7-1.1cm)FS (%) 30.0 % LVEF(%)60.0 (>50%) Aortic Valve AoV Peak Duane.162.0cm/sAoV VTI33.0cm AO Peak GR.11.0mmHgAO Mean GR.6mmHg MARGARET (VTI)2.25cm2 Tricuspid Valve TR P. [id number] TR Peak Gr.[id number] LEFT VENTRICLE The left ventricle is normal size. There is normal left ventricular wall thickness. The left ventricu lar systolic function is normal. The Ejection Fraction is 55-60%. There is normal LV segmental wall m otion. RIGHT VENTRICLE The right ventricle is normal size. The right ventricular systolic function is normal. ATRIA The left atrium size is normal. The right atrium size is normal. The interatrial septum is intact wit h no evidence for an atrial septal defect or patent foramen ovale as noted on 2-D or Doppler imaging. AORTIC VALVE The aortic valve is calcified but opens well. Doppler and Color Flow revealed no significant aortic r egurgitation. There is no significant aortic valvular stenosis. MITRAL VALVE The mitral valve is normal in structure and function. There is no evidence of mitral valve prolapse. There is no mitral valve stenosis. Doppler and Color-flow revealed trace mitral regurgitation. TRICUSPID VALVE The tricuspid valve is normal in structure and function. Doppler and Color Flow revealed mild tricusp id regurgitation. The PA pressure was estimated at 32 mmHg. There is no tricuspid valve stenosis. PULMONIC VALVE The pulmonary valve is normal in structure and function. Doppler and Color Flow revealed trace to mil d pulmonic valvular regurgitation. There is no pulmonic valvular stenosis. GREAT VESSELS The aortic root is normal in size. The ascending aorta is normal in size. The IVC is normal in size a nd collapses >50% with inspiration. PERICARDIAL EFFUSION There is no evidence of significant pericardial effusion. Critical Notification Critical Value: No <Conclusion> The left ventricular systolic function is normal. The Ejection Fraction is 55-60%. There is normal LV segmental wall motion. Trace mitral regurgitation. Mild tricuspid regurgitation. The PA pressure was estimated at 32 mmHg. There is no evidence of significant pericardial effusion. Signed by : Jian Calvert, Electronically Approved : 02/20/2020 13:15:00
[2020-02-20] MEDS ORDERED: SERT50TA PO (13:30)
[2020-02-20] MEDS ORDERED: MECL-75 PO (13:30)
--- NOTE | 2020-02-20 14:30 | NUR ---
Discussed d/c information with pt, all medications reviewed and given handwritten medication prescriptions. Home health is to call pt, Cardiology will send holter monitor in the mail. pt verbalized understanding of all information. questions asked and answered. Patient belongings gathered and returned with pt. Wheeled pt to friends car. Karlo RAY
[2020-02-20] MEDS ORDERED: ONDANSETRON ODT 4 MG TAB.RAPDIS PO ONE (14:45)
--- NOTE | 2020-02-20 15:49 | DS ---
DATE OF DISCHARGE: HOSPITAL COURSE: The patient is a 60-year-old female patient who was admitted on 02/16/2020 with a complaint of dizziness that started day before, mild initially. When she was on a Zoom call, she did not think much of it. The night before admission, she was sitting on the couch and she became significantly more dizzy, described as room spinning around that is made worse with movement of her head or changing body position. She had few episodes of vomiting. On the morning of admission, she went to the bathroom. Her symptoms are exacerbated by moving to the ambulance gurney. She had some chills, but denied any fever. She was investigated extensively and her CT scan was unremarkable. There was no mass effect, midline shift, hemorrhage, extraaxial fluid collection or obvious acute infarction identified. The visualized paranasal sinuses are clear. Mastoid air cells are well aerated. She was admitted and started on meclizine. She was seen in consultation by Dr. Palmer and he started her on increased meclizine to 25 mg every 8 hours and started back on Zoloft to start at 50 mg daily and she continued to have dizziness and initially has difficult even eating. Eventually, she gradually improved. She was able to open her eyes and was able to walk and eat. While here, she was noted also to have significant sinus bradycardia and was seen in consultation by Cardiology team and a decision was made to discharge her with an event monitor and to make an appointment to be seen by the animal rides manager as an outpatient. She has had her echocardiogram done, which was not read yet this morning. She was seen also by Dr. Palmer who recommended to see him as an outpatient for nerve conduction studies as she continued to complain of numbness and paresthesia of her upper extremities to rule out cervical radiculopathy versus entrapment neuropathy. PHYSICAL EXAMINATION: GENERAL: When I saw her today, she looked well and was clearly in no apparent respiratory distress, slightly pale, but no jaundice, cyanosis or thyromegaly. No jugular venous distention. No limb edema. VITAL SIGNS: Her heart rate was 48, blood pressure was 148/84, temperature was 98.1, respiratory rate 20 and oxygen saturation was 96%. HEAD, EYES, EARS, NOSE AND THROAT: Showed normocephalic, atraumatic. NECK: Supple. HEART: Showed normal first and second heart sounds. No gallop or murmur. CHEST: Clear to auscultation. No crepitation or rhonchi. ABDOMEN: Distended, soft, nontender. NEUROLOGIC: She is definitely more awake, alert, keeping her eyes open. All her cranial nerves are intact. She moves extremities without difficulty. Her intake over the last 24 hours was 2316, output was recorded. LABORATORY DATA: This morning showed a serum sodium 141, potassium 3.6, chloride 106, bicarbonate 26, anion gap of 9, BUN 12, creatinine 0.9, estimated GFR was 63 mL per minute. His glucose was 99, calcium was 8.6. Total bilirubin, AST, ALT, alkaline phosphatase were normal. Total protein was 6.6, albumin was 3.5. TSH was slightly elevated at 4.678. Her white cell count was 5400, hemoglobin 13, hematocrit 37, MCV 95, and platelet count 263,000. Her urinalysis was essentially unremarkable. DISCHARGE MEDICATIONS: She was discharged home with home health to continue meclizine 25 mg 3 times a day, sertraline, Zoloft 50 mg once a day, acetaminophen 650 mg every 4 hours. Clonazepam ____ mg, takes 2 tablets at bedtime, gabapentin 100 mg 3 times a day, levothyroxine 75 mcg once a day, omeprazole 20 mg once a day and Ambien 5 mg at bedtime. FINAL DISCHARGE DIAGNOSES: 1. Acute vestibular neuritis versus benign positional paroxysmal vertigo. 2. The patient has neuropathy involving upper extremities, likely due to either cervical radiculopathy versus entrapment for which she would be seen by Dr. Palmer as an outpatient for nerve conduction study. She has marked bradyarrhythmias for which she will be discharged. She will have outpatient monitor and followup. She has had an echocardiogram that was done, the results are still pending. 3. Dizziness/vertigo likely due to acute vestibular neuronitis versus benign paroxysmal positional vertigo, improving gradually. 4. Sinus bradycardia with the lowest noted as 36 beats per minute. No pauses or high-grade heart block. 5. Hypertension, hypothyroidism, gastroesophageal reflux disease, chronic neck pain, anxiety and depression. 6. Numbness and paresthesia upper extremities to rule out cervical radiculopathy versus entrapment neuropathy. REID GARCIA MD DR: DEBORAH/forrest JOB#: [id number] / [id number]
== END 2020-02-20 14:35 | disposition home health service (06) | DRG 149 ==
LOC: ER 09:52 → ICU 14:50 → 1 SOUTH 02-17 16:07
PROVIDERS: ADMIT Internal Medicine; ATTEND Internal Medicine
DX: H81.20 Vestibular neuronitis, unspecified ear (principal); H81.10 Benign paroxysmal vertigo, unspecified ear; E03.9 Hypothyroidism, unspecified; R00.1 Bradycardia, unspecified; M54.12 Radiculopathy, cervical region; F32.9 Major depressive disorder, single episode, unspecified; F41.9 Anxiety disorder, unspecified; G89.29 Other chronic pain; H55.00 Unspecified nystagmus; H83.09 Labyrinthitis, unspecified ear; I10 Essential (primary) hypertension; K21.9 Gastro-esophageal reflux disease without esophagitis; K44.9 Diaphragmatic hernia without obstruction or gangrene; Z96.653 Presence of artificial knee joint, bilateral; M19.90 Unspecified osteoarthritis, unspecified site; Z82.49 Family history of ischemic heart disease and other diseases of the circulatory system; Z90.49 Acquired absence of other specified parts of digestive tract; Z90.710 Acquired absence of both cervix and uterus; Z98.1 Arthrodesis status
CPT/HCPCS: 36415; 70450; 80048; 80053; 81001; 84443; 85025; 85027; 93005; 93306; 96361; 96374; 96375; J1200; J2405; J8597; Q0162; 97110; 97116; 97530; 99285-25; J7030

== ENCOUNTER → 2021-01-10 | Outpatient (CLI) | payer OTHER ==
[~2021-01-10] MED LIST changes: +CLON0.5T4 PO; +GABA-585 PO; +LEVO50TA PO; +MECL-75 PO; +OMEP20CA16 PO; +SERT50TA PO; +ZOLP5TAB PO
--- NOTE | 2021-01-10 12:06 | RAD ---
PQRS Compliance Statement: One or more of the following individualized dose reduction techniques were utilized for this examinat ion: 1. Automated exposure control 2. Adjustment of the mA and/or kV according to patient size 3. Use of iterative reconstruction technique CT THORAX WO Clinical Indication: Reason: PULMONARY NODULE SEEN IN LEFT LUNG, NON SMOKER Comparison: None. TECHNIQUE: Helical CT imaging of the chest is performed without IV contrast. Findings: There is no adenopathy in the chest, limited evaluation of the pamela without IV contrast. There are se veral subcentimeter mediastinal lymph nodes. The great vessels are normal caliber. Cardiac size lisa l, no pericardial effusion. There is no pleural effusion. The central airways are patent. There is a 3 mm nodule in the right upp er lobe, image 58. There is minimal atelectasis or scarring in the posterior right lower lobe. There is discoid atelectasis or scarring in the lingula, minimal. Cholecystectomy. Mild fatty infiltration of the liver. Thoracic spine alignment is maintained. There are multilevel Schmorl's nodes. IMPRESSION: 1. There is a 3 mm pulmonary nodule in the right upper lobe. Consider CT chest follow-up in 12 month s if patient has risk factors for lung malignancy, otherwise no follow-up is required per Fleischner Society guidelines. 2. There is minimal atelectasis or scarring in the posterior right lower lobe and lingula. 3. Mild fatty infiltration of the liver. Electronically signed by: Yusuf Hernandez MD (01/10/2021 12:03 PM) [facility]
== END ==
LOC: CT 10:31
PROVIDERS: ATTEND Family Medicine
DX: R91.1 Solitary pulmonary nodule (principal); M51.44 Schmorl's nodes, thoracic region; K76.0 Fatty (change of) liver, not elsewhere classified; Z90.49 Acquired absence of other specified parts of digestive tract
CPT/HCPCS: 71250

== ENCOUNTER → 2021-03-25 | Outpatient (CLI) | payer OTHER ==
--- NOTE | 2021-03-25 16:55 | CARD ---
MR#: [id number] Date of Study: 03/25/2021 Ordering Physician: KARENA VILLAVICENCIO, Referring Physician: KARENA VILLAVICENCIO, Tech: Gloria Leon, [facility] APPROVED REPORT EXAM: Two-dimensional and M-mode echocardiogram with Doppler and color Doppler. Other Information Quality : AverageHR: 55bpm INDICATION Murmur Body Mass Index 28.0-28.9 2D DIMENSIONS RVDd2.8 (2.9-3.5cm)Left Atrium(2D)3.5 (1.6-4.0cm) IVSd1.0 (0.7-1.1cm)Aortic Root(2D)2.8 (2.0-3.7cm) LVDd5.4 (3.9-5.9cm)LVOT Diameter2.0 (1.8-2.4cm) PWd1.0 (0.7-1.1cm)LVDs3.3 (2.5-4.0cm) FS (%) 38.6 %SV98.7 ml Aortic Valve AoV Peak Duane.150.4cm/sAoV VTI35.9cm AO Peak GR.9.1mmHgLVOT Peak Duane.103.4cm/s LVOT VTI 23.94cmAO Mean GR.5mmHg MARGARET (VMAX)2.13zw8SEO (VTI)2.16cm2 Mitral Valve MV E Shxhxhyz69.6cm/sMV DECEL [id number] MV A Yhypbxag24.7cm/sE/A Ratio1.5 Pulmonary Valve PV Peak Ilqswdho50.5cm/sPV Peak Grad.3mmHg Tricuspid Valve TR P. Wxuiwmdh310gp/sRAP QLWCCKXH1qdCk TR Peak Gr.79lnVuCSHU34rxQk Pulmonary Vein S1 Fnmpfscg22.2cm/sD2 Ulictcsi70.4cm/s LEFT VENTRICLE The left ventricle is normal size. There is normal left ventricular wall thickness. The left ventricu lar systolic function is normal and the ejection fraction is within normal range. The Ejection Fracti on is 50-55%. There is normal LV segmental wall motion. The left ventricular diastolic function and f illing is normal for age. RIGHT VENTRICLE The right ventricle is normal size. There is normal right ventricular wall thickness. The right ventr icular systolic function is normal. ATRIA The left atrium size is normal. The right atrium size is normal. The interatrial septum is intact wit h no evidence for an atrial septal defect or patent foramen ovale as noted on 2-D or Doppler imaging. AORTIC VALVE The aortic valve is normal in structure and function. Doppler and Color Flow revealed no significant aortic regurgitation. There is no significant aortic valvular stenosis. Calculated aortic valve area is 2.36 cm2 with maximum pressure gradient of 9 mmHg and mean pressure gradient of 5 mmHg. MITRAL VALVE The mitral valve is normal in structure and function. There is no evidence of mitral valve prolapse. There is no mitral valve stenosis. Doppler and Color-flow revealed trace mitral regurgitation. TRICUSPID VALVE The tricuspid valve is normal in structure and function. Doppler and Color Flow revealed trace tricus pid regurgitation with an estimated PAP of 28 mmHg. There is no tricuspid valve stenosis. PULMONIC VALVE The pulmonic valve is not well visualized. Doppler and Color Flow revealed trace pulmonic valvular re gurgitation. GREAT VESSELS The aortic root is normal in size. The ascending aorta is normal in size. The IVC is normal in size a nd collapses >50% with inspiration. PERICARDIAL EFFUSION There is no evidence of significant pericardial effusion. Critical Notification Critical Value: No <Conclusion> The left ventricle is normal size. The left ventricular systolic function is normal and the ejection fraction is within normal range. The Ejection Fraction is 50-55%. Doppler and Color Flow revealed no significant aortic regurgitation. There is no significant aortic valvular stenosis. Doppler and Color-flow revealed trace mitral regurgitation. Doppler and Color Flow revealed trace tricuspid regurgitation with an estimated PAP of 28 mmHg. Signed by : Len Rabago MD Electronically Approved : 03/25/2021 16:54:38
== END ==
LOC: ECHO 09:55
PROVIDERS: ATTEND Internal Medicine Cardiovascular Disease
DX: R01.1 Cardiac murmur, unspecified (principal); Z68.28 Body mass index [BMI] 28.0-28.9, adult
CPT/HCPCS: 93306